=== PATIENT | female | born 1970 | race Two or more races ===

== ENCOUNTER 2016-08-10 16:47 | Emergency (ER) | payer MEDICAID ==
[~2016-08-10] VITALS: Ht 160 cm; Wt 47.6 kg
[2016-08-10 16:59] VITALS: BP 130/78
[2016-08-10 17:29] LABS: KETONES,URINE Negative (NEGATIVE); LEUKOCYTE ESTERASE ,URINE Trace (NEGATIVE)
[2016-08-10 17:40] LABS: ADD UA MICROSCOPIC YES
[2016-08-10 17:43] LABS: ADD URINE CULTURE NO; MUCUS,URINE Few /LPF (None Seen); RBC,URINE 21-50 /HPF (0-2)
== END 2016-08-10 18:20 | disposition home or self-care (01) ==
LOC: ER 16:49
DX: N39.0 Urinary tract infection, site not specified (principal); Z90.49 Acquired absence of other specified parts of digestive tract; Z88.2 Allergy status to sulfonamides
CPT/HCPCS: 81001; 84703; 99283; A4606; Z7610; 81000-TC

== ENCOUNTER 2017-02-13 17:05 | Emergency (ER) | payer OTHER, MEDICAID ==
[~2017-02-13] VITALS: Ht 157.5 cm; Wt 54.4 kg
--- NOTE | 2017-02-13 17:20 | NUR ---
PT REC;D TO ER POSS HEMMHOIDS BLEDING ON TOLIET TISSUE ONE DAY STRAINS WHILE HAVING BMAWAITING EVALUATION BY ER PROVIDER.
--- NOTE | 2017-02-13 18:00 | NUR ---
Patient discharged to home in stable condition. Written and verbal after care instructions given. Patient verbalizes understanding of instruction.
[2017-02-13 18:29] VITALS: BP 115/86
== END 2017-02-13 18:30 | disposition home or self-care (01) ==
LOC: ER 17:07
DX: K62.5 Hemorrhage of anus and rectum (principal); Z88.2 Allergy status to sulfonamides
CPT/HCPCS: A4606; Z7610

== ENCOUNTER 2024-07-10 15:01 | Emergency (ER) | payer MEDICAID, OTHER | END 2024-07-10 15:41 | disposition left against medical advice (07) | LOC: ER 15:05 | DX: R52 Pain, unspecified (principal); Z53.21 Procedure and treatment not carried out due to patient leaving prior to being seen by health care provider ==